=== PATIENT | female | born 1990 ===

== ENCOUNTER 2025-08-11 21:05 | Inpatient (IN) | payer OTHER ==
[2025-08-11] MEDS: LACTATED RINGERS SOLUTION 500 ML IV ONE (22:00)
[2025-08-11 22:14] LABS: URINE APPEARANCE CLEAR; URINE BILIRUBIN NEGATIVE (NEGATIVE); URINE COLOR YELLOW; URINE GLUCOSE (UA) NEGATIVE (NEGATIVE); URINE KETONE NEGATIVE (NEGATIVE); URINE LEUK ESTERASE NEGATIVE (NEGATIVE); URINE NITRITE NEGATIVE (NEGATIVE); URINE PROTEIN NEGATIVE (NEGATIVE); URINE UROBILINOGEN 0.2 mg/dL (0.2-1.0)
[2025-08-11 22:22] LABS: ABSOLUTE IMMATURE GRANULOCYTES 0.15 x10^3/uL (0.0-0.031); BASOPHILS # 0.02 x10^3/uL (0.01-0.08); EOSINOPHIL % 0.6 % (0.7-5.8); EOSINOPHILS # 0.06 x10^3/uL (0.04-0.36); MCHC 32.8 g/dl (32.2-35.5); MEAN CELL VOLUME 98.0 fl (79.4-94.8); MEAN PLT VOLUME 11.1 fl (9.4-12.3); MONOCYTE # 1.13 x10^3/uL (0.24-0.86); MONOCYTE % 10.4 % (4.7-12.5); RDW 13.0 % (12.1-16.8)
[2025-08-11 22:29] LABS: INR 0.88 (0.83-1.09); PROTHROMBIN TIME (PATIENT) 9.6 SEC (9.7-13.0)
[2025-08-11] MEDS: LACTATED RINGERS SOLUTION 1,000 ML IV SCH ×2 (22:30→23:30)
[2025-08-11 22:32] LABS: ACTIVATED PTT 28.4 SECONDS (25.2-36.5)
[2025-08-11 22:42] LABS: GLUCOSE,RANDOM 79.0 mg/dL (74-106); TOT PROT 6.7 g/dl (6.4-8.2)
[2025-08-11 22:43] LABS: CO2 20.0 mmol/L (21-32)
[2025-08-11 22:45] LABS: ALK PHOS 164.0 U/L (40-150)
[2025-08-11 22:47] LABS: SGOT/AST 22.0 U/L (5-34); SGPT/ALT 11.0 U/L (0-55)
[2025-08-11 22:48] LABS: CREATININE 0.72 mg/dL (0.55-1.3)
[2025-08-11 23:32] VITALS: BMI 29.2
[2025-08-12] MEDS: CITRIC ACID/SODIUM CITRATE 30 ML UNIT-DOSE CUP PO ONE (00:10)
[2025-08-12] MEDS ORDERED: OXYTOCIN 30 UNITS in 0.9% NS 30 UNIT/500 ML INFUS.BAG IVPB ONE ×2 (00:13→01:52)
[2025-08-12] MEDS ORDERED: FENTANYL CITRATE/PF 50 MCG/ML VIAL ONE (00:14)
[2025-08-12] MEDS ORDERED: morphine SULFATE/PF 1 MG/2 ML (2cc Syringe - QUVA) ONE (00:14)
[2025-08-12] MEDS ORDERED: ONDANSETRON 4 MG/2 ML VIAL IVPUSH PRN (01:05)
[2025-08-12 01:15] LABS: CORD BASE EXCESS -2.9 mmol/L (0-2); CORD HCO3 23.2 mmHg (20-29); CORD PCO2 45.0 mmHg (30-78); CORD pH 7.331 (7.14-7.44)
[2025-08-12 01:19] LABS: CORD BASE EXCESS -5.500 mmol/L (0-2); CORD HCO3 22.9 mmHg (20-29); CORD PCO2 55.6 mmHg (30-78); CORD pH 7.233 (7.14-7.44)
[2025-08-12] MEDS ORDERED: METHYLERGONOVINE MALEATE 0.2 MG/1 ML AMP IM PRN (02:25)
[2025-08-12] MEDS ORDERED: ACETAMINOPHEN 325 MG TABLET (FP) PO PRN (02:25)
[2025-08-12] MEDS: OXYTOCIN 20 UNITS in 0.9% NS 20 UNIT/1,000 ML INFUS.BAG IV SCH (02:45)
[2025-08-12] MEDS: KETOROLAC TROMETHAMINE 15 MG/ML VIAL IVPUSH ONE (04:49)
[2025-08-12] MEDS: ACETAMINOPHEN 1000 MG/100 ML BAG IVPB ONE (04:49)
[2025-08-12] MEDS: ACETAMINOPHEN 1000 MG/100 ML BAG IVPB PRN (05:20)
[2025-08-12] MEDS: SIMETHICONE 80 MG TAB.CHEW (FP) PO PRN (05:20)
[2025-08-12] MEDS: IBUPROFEN 600 MG TABLET (FP) PO PRN (17:39)
[2025-08-12] MEDS: ACETAMINOPHEN 325 MG TABLET (FP) PO PRN (19:56)
[2025-08-13] MEDS ORDERED: BISACODYL 10 MG SUPP.RECT RC PRN (02:25)
[2025-08-13 08:06] LABS: MCHC 32.6 g/dl (32.2-35.5); MEAN CELL VOLUME 99.7 fl (79.4-94.8); MEAN PLT VOLUME 11.3 fl (9.4-12.3); RDW 13.5 % (12.1-16.8)
[2025-08-13] MEDS: IBUPROFEN 600 MG TABLET (FP) PO PRN (17:44)
[2025-08-14 07:36] LABS: MCHC 32.2 g/dl (32.2-35.5); MEAN CELL VOLUME 98.5 fl (79.4-94.8); MEAN PLT VOLUME 10.5 fl (9.4-12.3); RDW 13.6 % (12.1-16.8)
[2025-08-14 20:48] VITALS: RESP 18
[2025-08-15 08:10] LABS: ABSOLUTE IMMATURE GRANULOCYTES 0.15 x10^3/uL (0.0-0.031); BASOPHILS # 0.02 x10^3/uL (0.01-0.08); EOSINOPHIL % 3.3 % (0.7-5.8); EOSINOPHILS # 0.41 x10^3/uL (0.04-0.36); MCHC 32.0 g/dl (32.2-35.5); MEAN CELL VOLUME 99.7 fl (79.4-94.8); MEAN PLT VOLUME 11.1 fl (9.4-12.3); MONOCYTE # 0.77 x10^3/uL (0.24-0.86); MONOCYTE % 6.3 % (4.7-12.5); RDW 13.3 % (12.1-16.8)
[2025-08-15 08:33] LABS: GLUCOSE,RANDOM 69.0 mg/dL (74-106); TOT PROT 5.6 g/dl (6.4-8.2)
[2025-08-15 08:36] LABS: ALK PHOS 120.0 U/L (40-150)
[2025-08-15 08:39] LABS: CREATININE 0.55 mg/dL (0.55-1.3); SGOT/AST 32.0 U/L (5-34); SGPT/ALT 12.0 U/L (0-55)
[2025-08-15 08:51] VITALS: BP 127/82; PULSE 92; TEMP 97.8
[2025-08-15 09:54] LABS: CO2 21.0 mmol/L (21-32)
== END 2025-08-15 12:30 | disposition home or self-care (01) | DRG 540 ==
LOC: JDEL 21:05 → JLDR 23:00 → J3W 08-12 04:44
PROVIDERS: ADMIT Family Medicine; ATTEND Family Medicine
PROC: 10D00Z1 Extraction of Products of Conception, Low, Open Approach (ICD-10-PCS; principal; 2025-08-12)
DX: O34.219 Maternal care for unspecified type scar from previous cesarean delivery (principal); Z3A.38 38 weeks gestation of pregnancy; Z37.0 Single live birth; O99.893 Other specified diseases and conditions complicating puerperium; R00.0 Tachycardia, unspecified
CPT/HCPCS: 36415; 36600; 59409; 80053; 81003; 82570; 82803; 83735; 84100; 84156; 85025; 85027; 85610; 85730; 86780; 86850; 86900; 86901; 88307-TC; 93005; 93010